=== PATIENT | female | born 1980 | race Caucasian/White ===

== ENCOUNTER → 2016-09-26 | Outpatient (CLI) | payer BC ==
[~2016-09-26] MED LIST: FIBER TAB; FIBER TAB PO; MISCCAP80 PO; NAPR1TAB9 PO; OXYC-57 PO; PANT40TA PO; PLEXUS PO
== END | disposition home or self-care (01) ==
LOC: C.PAPS 08:55
PROVIDERS: ATTEND Obstetrics & Gynecology
DX: Z01.419 Encounter for gynecological examination (general) (routine) without abnormal findings (principal)

== ENCOUNTER → 2016-09-26 | Outpatient (CLI) | payer BC ==
[2016-09-28 11:13] LABS: VARICELLA ZOS VIR IGG VALUE 992.2 INDEX
== END | disposition home or self-care (01) ==
LOC: C.LAB1850 15:55
PROVIDERS: ATTEND Obstetrics & Gynecology
DX: Z01.419 Encounter for gynecological examination (general) (routine) without abnormal findings (principal); Z31.69 Encounter for other general counseling and advice on procreation

== ENCOUNTER → 2016-11-28 | Day surgery (SDC) | payer BC ==
[2016-11-01 12:05] VITALS: BMI 25.0
--- NOTE | 2016-11-01 12:40 | PAT Medication Instructions ---
Service Date Nov 01, 2016. Current Home Medication List Naproxen (Aleve), 440 MG PO PRN Probiotic Product (Probiotic), 2 CAP PO HS [Fiber Tab], 3 TAB PO QAM [Plexus], 6-8 OZ PO QAM Medication Instructions For Your Scheduled Surgery - Hold the following medications the morning of surgery: Naproxen (Aleve), 440 MG PO PRN (otherwise okay to continue per surgeon) [Fiber Tab], 3 TAB PO QAM [Plexus], 6-8 OZ PO QAM - Take the following medications as scheduled the night before surgery: Probiotic Product (Probiotic), 2 CAP PO HS nothing to eat or drink after midnight If you have any questions please call us at [phone] or [phone] or [phone]
[2016-11-01 13:27] LABS: BASO % 0.3 %; BASO ABS # 0.02 K/uL (0-0.2); COMPLETE YES; EOS % 4.9 %; HEMATOCRIT 39.7 % (37-47); IG% 0.3 %; LYMPH % 41.4 %; LYMPH ABS # 2.45 K/uL (1.2-3.4); MEAN CELL VOLUME 86.5 fL (80-100); MEAN CORPUSCULAR HEMOGLOBIN 29.6 pg (25-34); MEAN CORPUSCULAR HGB CONC 34.3 g/dl (32-36); MEAN PLATELET VOLUME 11.1 fL (7.4-10.4); MONO % 8.3 %; NEUT % 44.8 %; PLATELET COUNT 309 K/uL (130-400); RED BLOOD COUNT 4.59 M/uL (4.2-5.4); WHITE BLOOD COUNT 5.92 K/uL (4.8-10.8)
[~2016-11-28] VITALS: Ht 162.6 cm; Wt 67.1 kg
[~2016-11-28] MED LIST changes: +ACETAMINOPHEN 325 MG TAB PO PRN; +ACETAMINOPHEN 650 MG SUPP PR PRN; +ASPI325T45 PO; +ATROPINE SULFATE 0.1 MG/ML 5ML SYR IV PRN; +BUPIVACAINE 0.5 % 5 MG/1 ML MPF 30ML VIAL ONE; +CEFAZOLIN 2000 MG/60 ML D5W IV SCH; +DEXAMETHASONE SOD INJ 4 MG/ML VIAL ONE; +EpHEDrine SULFATE INJ 50 MG/ML AMP IV PRN; +FENTANYL CITRATE INJ 50 MCG/1 ML 2 ML VIAL ONE; -FIBER TAB; +GLYCOPYRROLATE INJ 0.2 MG/ML VIAL ONE; +HYDROmorphone INJ 2 MG/ML SYR/VIAL IV PRN; +IBUPROFEN 200 MG TAB PO PRN; +IBUPROFEN 600 MG TAB PO PRN; +KETOROLAC TROMETHAMINE 30 MG/ML VIAL IV. PRN; +KETOROLAC TROMETHAMINE 30 MG/ML VIAL ONE; +LACTATED RINGER'S 1000ML 1,000 ML IV SCH; +LIDOCAINE HCL 2% 2 ML VIAL (20MG/ML) ONE; +MIDAZOLAM HCL 1 MG/ML 2ML VIAL ONE; +MoRPHine SULFATE 2 MG/ML CARP IV PRN; +MoRPHine SULFATE 4 MG/ML 1 ML CARP\\VIAL IV PRN; +NEOSTIGMINE METHYLSULFATE 5 MG/5 ML SYR ONE; +ONDANSETRON INJ 2 MG/ML 2 ML VIAL IV PRN; +ONDANSETRON INJ 2 MG/ML 2 ML VIAL ONE; +OXYCODONE/ACETAMINOPHEN 5-325 TAB ONE; +OXYCODONE/ACETAMINOPHEN 5-325 TAB PO PRN; -PANT40TA PO; +PHENYLEPHRINE 100MCG/ML 5ML SYR IV PRN; +PROPOFOL IV EMULSION 10 MG/ML 20 ML VIAL IV ONE; +ROCURONIUM BROMIDE 10 MG/ML 5 ML VIAL IV ONE
[2016-11-28 05:50] VITALS: BP 115/64; PULSE 56; TEMP 37.1; O2SAT 97; Ht 162.6 cm; Wt 67.1 kg
[2016-11-28 06:23] LABS: BASO % 0.5 %; BASO ABS # 0.03 K/uL (0-0.2); EOS % 6.5 %; HEMATOCRIT 36.5 % (37-47); IG% 0.2 %; LYMPH % 40.8 %; LYMPH ABS # 2.58 K/uL (1.2-3.4); MEAN CELL VOLUME 85.5 fL (80-100); MEAN CORPUSCULAR HEMOGLOBIN 30.2 pg (25-34); MEAN PLATELET VOLUME 10.4 fL (7.4-10.4); MONO % 8.4 %; NEUT % 43.6 %; PLATELET COUNT 276 K/uL (130-400); RED BLOOD COUNT 4.27 M/uL (4.2-5.4); WHITE BLOOD COUNT 6.32 K/uL (4.8-10.8)
[2016-11-28 06:27] LABS: COMPLETE YES; MEAN CORPUSCULAR HGB CONC 35.3 g/dl (32-36)
--- NOTE | 2016-11-28 07:13 | History & Physical Bridge Note ---
H&P Re-Evaluation Bridge Note: I have examined the patient, reviewed the History & Physical and in the interval since the performance of the History & Physical I have noted the following changes of clinical significance: No changes noted
--- NOTE | 2016-11-28 08:30 | [facility] Post Operative Brief Note ---
Immediate Operative Summary Operative Date Nov 28, 2016. Pre-Operative Diagnosis Cyst of right ovary Post-Operative Diagnosis Cyst of right ovary Procedure(s) Performed Open Mini Incision of Abdomen, Lysis of Adhesions, Right Ovarian Cystectomy Surgeon Dr. Claudia Grubbs Meat Seafood Associate Surgeon(s) None Estimated Blood Loss 10 mL Findings 5-6cm cystic mass on the right ovary, dermoid, left ovary nl, nl appearing tubes bilaterally Fluids (cc crystalloids) 900cc Specimens Permanent specimens A: Right ovarian cyst Drains none Anesthesia gett Complication(s) None Disposition Recovery Room / PACU
--- NOTE | 2016-11-28 08:35 | Discharge Instructions ---
Discharge Instructions Date of Service Nov 28, 2016. Visit Reason for Visit: Cyst Of Right Ovary Discharge Discharge Diagnosis / Problem: s/p minilaparotomy and removal of right ovarian cyst. Discharge Goals Goal(s): Specific goals Activity Recommendations Activity Limitations: per Instructions/Follow-up section Anesthesia . Post Anesthesia Instructions: If you have had General Anesthesia or IV Sedation: * Do not drive today. * Resume driving when surgeon permits. * Do not make important decisions or sign legal documents today. * Call surgeon for: 1. Temperature elevations greater than 101 degrees F. 2. Uncontrollable pain. 3. Excessive bleeding. 4. Persistent nausea and vomiting. 5. Medication intolerance (nausea, vomiting or rash). * For nausea and vomiting use only clear liquids such as: tea, soda, bouillon until nausea subsides, then gradually increase diet as tolerated. * If you have any concerns or questions, call your surgeon's office. If physician is unavailable and it is an emergency, call 911 or go to the nearest emergency room. . Instructions / Follow-Up Instructions / Follow-Up ACTIVITY RECOMMENDATIONS: Activity: * During the first week at home, your activity should be similar to that done at the hospital prior to discharge. Your primary activity is in-house walking interspersed with rest periods. Preparing lunch for yourself is acceptable. You may go up and down stairs. Try to stay up progressively longer periods of time to help regain your strength more quickly. * During the second week at home, activities should include some meal preparation, walking to strengthen abdominal muscles and riding in a car. You may drive a car and make brief shopping trips at the end of the second week at home. * Lifting should not exceed 15-20 pounds during the first month after surgery. * Sexual intercourse can usually be resumed about 6 weeks after surgery depending on findings at your post-operative examinations. Bathing: * Showers or baths are permissible. Sitting in four to six inches of hot water (sitz bath) is often comforting after vaginal surgery and is permitted at any time. A sitz bath at bedtime can also assist in a better night's sleep. SPECIAL CARE INSTRUCTIONS: The major discomforts related to surgery have now passed and progressive improvement will occur. The tight uncomfortable feeling in the abdominal, pelvic and back area will gradually fade away. Fatigue may take the longest to disappear; your energy level may take several weeks to return to normal. At times you may become frustrated or impatient over not feeling as well or doing as much as you'd like , but this is a normal reaction to surgery and will pass with time. Vaginal Discharge: * Odorous, blood-tinged or brownish discharge may be present for one to three weeks after surgery. * Pads should be used and not tampons. * Stitches may be passed vaginally. * Bleeding may be somewhat increased approximately two weeks after surgery, which is related to the stitches dissolving. * If bleeding becomes free flowing, notify our office at . Bowel Care: * Constipation after surgery is very common. Foods that promote bowel activity (bran, fruit, prune juice) should be included in your diet. * A capsule, DIALOSE-PLUS, can be purchased without a prescription and can be taken daily (one or two capsules) to assist in promoting bowel activity. * If you have had vaginal surgery involving your rectum, we will discuss this when discharged from the hospital. Catheter or "CYSTO-CATH": * Approximately 80% of "bladder repair" patients will require a catheter at home until the swelling recedes. * Some patients require days to weeks before adequate bladder emptying will resume. * In general, after each time you urinate, un-clamp the catheter again. Measure the amount in the bag. When this is consistently below 100cc, call the office to make an appointment to have the catheter removed. Temperature: * Any fever above 100.4 degrees F should be reported to our office at . FOLLOW-UP: Post-Operative Appointments: * Individual instructions will have been given about the timing of your first examination, but this is usually at the end of the second week home. * You will need to call the office at soon after discharge to make the appointment for your post-op check-up if it has not already been scheduled. * Additional information regarding activity, sexual intercourse and when to return to work will be given at this appointment. WE WISH YOU A SPEEDY RECOVERY! Diet Recommendations Recommended Home Diet: no limitations, resume previous diet Procedures Procedures Performed: Open Mini Incision of Abdomen, Lysis of Adhesions, Right Ovarian Cystectomy Pending Studies Studies pending at discharge: no Medical Emergencies . Who to Call and When: Medical Emergencies: If at any time you feel your situation is an emergency, please call 911 immediately. . Non-Emergent Contact Non-Emergency issues call your: Social Staff Worker . . "Provider Documentation" section prepared by Claudia Grubbs. . [place] Drug Monitoring Program Search Results: patient reviewed within database, no issues identified
--- NOTE | 2016-11-28 08:49 | Anesthesiology Progress Note ---
Anesthesia Post Op Note Date & Time Nov 28, 2016 at 08:48 Vital Signs Pain Intensity: 5.0 Vital Signs Past 12 Hours Date Time Temp Pulse Resp B/P (MAP) Pulse Ox O2 Delivery O2 Flow Rate FiO2 11/28/16 08:30 36.0 53 10 100/62 100 Oxymask 10 11/28/16 05:50 37.1 56 18 115/64 (81) 97 Room Air Notes Mental Status: alert / awake / arousable, participated in evaluation Pt Amnestic to Procedure: Yes Nausea / Vomiting: adequately controlled Pain: adequately controlled Airway Patency, RR, SpO2: stable & adequate BP & HR: stable & adequate Hydration State: stable & adequate Anesthetic Complications: no major complications apparent
[2016-11-28 09:15] VITALS: BP 98/65; PULSE 65; TEMP 37.3; O2SAT 97
--- NOTE | 2016-11-28 09:16 | OPERATIVE REPORT ---
DATE OF OPERATION: 11/28/2016 PREOPERATIVE DIAGNOSIS: Right complex ovarian cyst. POSTOPERATIVE DIAGNOSIS: Right complex ovarian cyst, probable dermoid. PROCEDURE: Minilaparotomy with right ovarian cystectomy. SURGEON: Dr. Claudia Grubbs. ANESTHESIA: General per endotracheal tube. ESTIMATED BLOOD LOSS: 10 mL. FLUIDS: 900 mL of IV fluid. URINE OUTPUT: 150 mL of clear yellow urine drained from the bladder at the end of the procedure. INDICATIONS: The patient is a 1, who presented for her annual exam. She had a known dermoid cyst diagnosed on CT scan approximately a year ago. She is now interested in . Repeat ultrasound performed showing dermoid increased in size. FINDINGS: Right ovary enlarged by a 5-6 cm cystic mass. Right tube, normal. Left ovary, normal. Left tube, normal. Uterus appeared normal. COMPLICATIONS: None. DRAINS: None. DISPOSITION: To recovery room in stable condition. DESCRIPTION OF PROCEDURE: The patient was taken to the operating room, where she was identified verbally and by bracelet. She was placed in dorsal supine position, where general anesthesia was induced without difficulty. She was then placed in the frog leg position, where an exam under anesthesia was performed showing a mobile right adnexa with a 5-cm mass appreciable. No appreciable mass within the left adnexa. Uterus is mobile. A Cruz catheter was placed sterilely. The patient was placed back into the supine position and she was prepped and draped in normal sterile fashion. A time-out was held identifying correct patient, procedure and positioning. A minilaparotomy incision was made with the knife. This was taken down to the underlying layer of fascia using Bovie electrocautery. Bleeding was attended to with Bovie electrocautery. The fascia was incised in the midline with cautery and taken out laterally with scissors. The superior edge of the fascial incision was elevated and the underlying layer of rectus muscle was taken off bluntly and with scissors. In a similar fashion, the inferior edge of the fascial incision was elevated and the underlying layer of rectus muscle was taken off bluntly and with scissors. The peritoneum was entered bluntly and was stretched. The barker operator's hand was placed into the abdomen. The right ovary was palpated to be enlarged approximately 5-6 cm and it was brought up through the incision. Blue towels were packed around it. An incision was made over the cystic mass with the knife. The cystic mass was then removed using traction and countertraction and removing the cyst wall from the ovary with a Kitner. The cyst was ruptured during the course of the procedure, releasing fatty fluid and hair was noted. The cyst was then removed in its entirety and handed off. The bed of the cyst was then irrigated. Hemostasis was noted to be excellent. A baseball stitch of 3-0 Vicryl was placed in the base to close the space and then the edges were reapproximated with 3-0 Vicryl in a running fashion. Hemostasis was noted to be excellent. The ovary was replaced. The left ovary was palpated and visualized normally as well as its tube. The procedure was thus terminated. The rectus muscles were approximated in the midline naturally. The fascia was reapproximated with 0 Vicryl meeting in the midline. Subcuticular tissue was copiously irrigated with warm normal saline. Any bleeding was attended to with Bovie electrocautery. A stitch of 2-0 plain gut was used to close the space and the skin was closed with 4-0 Vicryl in a subcuticular fashion. All sponge, lap and needle counts were correct x2. The patient tolerated the procedure well and was taken to the recovery room in stable condition. I attest to the content of the Intraoperative Record and any orders documented therein. Any exception s are noted below.
[2016-11-28 09:45] VITALS: BP 110/74; PULSE 63; O2SAT 99
[2016-11-28 10:15] VITALS: BP 115/62; PULSE 68; TEMP 37.1; O2SAT 98
[2016-11-28 11:30] VITALS: BP 101/65; PULSE 92; O2SAT 99
== END | disposition home or self-care (01) ==
LOC: C.ACU 05:29
PROVIDERS: ATTEND Obstetrics & Gynecology
DX: D27.0 Benign neoplasm of right ovary (principal); F41.9 Anxiety disorder, unspecified; Z98.890 Other specified postprocedural states; Z98.818 Other dental procedure status; Z87.891 Personal history of nicotine dependence; Z86.711 Personal history of pulmonary embolism; Z68.25 Body mass index [BMI] 25.0-25.9, adult; Z83.3 Family history of diabetes mellitus; Z82.49 Family history of ischemic heart disease and other diseases of the circulatory system; Z80.42 Family history of malignant neoplasm of prostate; Z83.49 Family history of other endocrine, nutritional and metabolic diseases

== ENCOUNTER → 2017-04-17 | Outpatient (CLI) | payer BC ==
[~2017-04-17] MED LIST changes: -ACETAMINOPHEN 325 MG TAB PO PRN; -ACETAMINOPHEN 650 MG SUPP PR PRN; -ATROPINE SULFATE 0.1 MG/ML 5ML SYR IV PRN; -BUPIVACAINE 0.5 % 5 MG/1 ML MPF 30ML VIAL ONE; -CEFAZOLIN 2000 MG/60 ML D5W IV SCH; -DEXAMETHASONE SOD INJ 4 MG/ML VIAL ONE; -EpHEDrine SULFATE INJ 50 MG/ML AMP IV PRN; -FENTANYL CITRATE INJ 50 MCG/1 ML 2 ML VIAL ONE; -GLYCOPYRROLATE INJ 0.2 MG/ML VIAL ONE; -HYDROmorphone INJ 2 MG/ML SYR/VIAL IV PRN; -IBUPROFEN 200 MG TAB PO PRN; -IBUPROFEN 600 MG TAB PO PRN; -KETOROLAC TROMETHAMINE 30 MG/ML VIAL IV. PRN; -KETOROLAC TROMETHAMINE 30 MG/ML VIAL ONE; -LACTATED RINGER'S 1000ML 1,000 ML IV SCH; -LIDOCAINE HCL 2% 2 ML VIAL (20MG/ML) ONE; -MIDAZOLAM HCL 1 MG/ML 2ML VIAL ONE; -MoRPHine SULFATE 2 MG/ML CARP IV PRN; -MoRPHine SULFATE 4 MG/ML 1 ML CARP\\VIAL IV PRN; -NEOSTIGMINE METHYLSULFATE 5 MG/5 ML SYR ONE; -ONDANSETRON INJ 2 MG/ML 2 ML VIAL IV PRN; -ONDANSETRON INJ 2 MG/ML 2 ML VIAL ONE; -OXYCODONE/ACETAMINOPHEN 5-325 TAB ONE; -OXYCODONE/ACETAMINOPHEN 5-325 TAB PO PRN; -PHENYLEPHRINE 100MCG/ML 5ML SYR IV PRN; -PROPOFOL IV EMULSION 10 MG/ML 20 ML VIAL IV ONE; -ROCURONIUM BROMIDE 10 MG/ML 5 ML VIAL IV ONE
--- NOTE | 2017-04-17 15:41 | MAMMOGRAPHY REPORT ---
BILATERAL DIGITAL DIAGNOSTIC MAMMOGRAM TOMOSYNTHESIS WITH CAD AND TARGETED LEFT ULTRASOUND: 04/17/2017 CLINICAL HISTORY: 36-year-old woman presents after she noticed a lump in the left upper outer quadran t approximately 8 weeks ago. Last week she felt a possible second area that was tender but possibly due to ovulation. No skin erythema or thickening. No nipple discharge. No family history of breast cancer. Baseline exam. TECHNIQUE: Bilateral breast tomosynthesis in addition to standard 2D mammography was performed. A 2D left exaggerated lateral CC view was also performed. Current study was also evaluated with a Comput er Aided Detection (CAD) system. COMPARISON: No prior exams were available for comparison. BREAST COMPOSITION: The tissue of both breasts is extremely dense, which lowers the sensitivity of m ammography. FINDINGS: A triangular palpable marker overlies the skin of the left upper outer quadrant. No suspic ious mass, architectural distortion or cluster of microcalcifications is seen, with particular attent ion to the area of palpable concern in the left breast. Targeted ultrasound was performed in the area of lump pointed out by the patient. It should be noted that the patient pointed out a single grape-sized lump in the left upper outer quadrant approximate 1:00 axis. In the 1:00 breast, 6 cm from the nipple, in the area of concern pointed out by the patie nt there is a soft discrete plateau of firm tissue measuring approximately 1.5 x 2.5 cm. On ultrasou nd, there is an island of dense glandular tissue without underlying solid or cystic suspicious mass. No focal skin thickening or drainable fluid collection. IMPRESSION: ACR BI-RADS CATEGORY 2: BENIGN, TARGETED ULTRASOUND ACR BI-RADS CATEGORY 2: BENIGN 1. There is no suspicious mammographic or targeted sonographic abnormality or evidence of malignancy in the 1:00 left breast, in the area of lump pointed out by the patient. Continued clinical monitorin g and clinical follow-up is recommended, as biopsy of a clinically suspicious mass should not be prec luded by negative imaging. 2. No mammographic evidence of malignancy in the right breast. These results and recommendations were discussed with the patient and her at the time of th e exam. Approximately 10% of breast cancers are not detected with mammography. A negative mammographic report should not delay biopsy if a clinically suggestive mass is present. Yulissa Cervantes M.D. ay/:04/17/2017 12:22:29 In Home Caregiver: Lissy YADAV(Henok)(M), [facility] letter sent: Normal 1/2 BI-RADS Code: ACR BI-RADS Category 2: Benign Ultrasound BI-RADS: ACR BI-RADS Category 2: Benign
== END | disposition home or self-care (01) ==
LOC: C.MAMM 11:32
PROVIDERS: ATTEND Obstetrics & Gynecology
DX: N63.21 Unspecified lump in the left breast, upper outer quadrant (principal)

== ENCOUNTER → 2017-09-07 | Outpatient (CLI) | payer BC ==
[~2017-09-07] MED LIST changes: +ASPECOTC PO; -ASPI325T45 PO; -OXYC-57 PO
== END | disposition home or self-care (01) ==
LOC: C.PATH 08:51
PROVIDERS: ATTEND Obstetrics & Gynecology
DX: N63.20 Unspecified lump in the left breast, unspecified quadrant (principal)

== ENCOUNTER → 2017-10-04 | Outpatient (CLI) | payer BC | END | disposition home or self-care (01) | LOC: C.LABSPEC 17:49 | PROVIDERS: ATTEND Obstetrics & Gynecology | DX: O09.511 Supervision of elderly primigravida, first trimester (principal); Z3A.00 Weeks of gestation of pregnancy not specified ==

== ENCOUNTER 2018-05-22 08:18 | Inpatient (IN) ==
[2018-05-22] MEDS ORDERED: OXYTOCIN 30 UNITS/500 ML BAG IV PRN ×2 (08:24→14:04)
[2018-05-22] MEDS ORDERED: LACTATED RINGER'S 1,000 ML IV PRN ×2 (08:24→09:55)
[2018-05-22] MEDS ORDERED: BUPIVACAINE 0.25% 30 ML VIAL ONE (08:28)
[2018-05-22] MEDS ORDERED: fentaNYL 2MCG/ML ROPIV 1.25MG/ML 100 ML BAG EPI ONE (08:28)
[2018-05-22] MEDS ORDERED: ePHEDrine sulfate 50 MG/ML AMP ONE (08:28)
[2018-05-22] MEDS ORDERED: fentaNYL citrate 100 MCG/2 ML VIAL ONE (08:28)
[2018-05-22] MEDS ORDERED: LACTATED RINGER'S 1,000 ML IV SCH (08:30)
--- NOTE | 2018-05-22 08:35 | History & Physical Report ---
Date of Service May 22, 2018 Assessment & Plan (1) Active labor at term: plan admit, try to get epidural. Fetus overall reassuring--category two with variables. anticipate . will gry to get pcn on board for gbs but may not get adequate treatment. (2) Advanced maternal age (AMA) in : (3) 40 weeks gestation of : History of Present Illness Chief Complaint: contractions and bloody show Primary Care Provider: Angelo William MD Patient is a 37yowf with iup at 40 0/7 who presents to labor and delivery complaining of contractions and bloody show. no lof. +fm. got bad around 7am. complicated by ama and gbs positive status. labs--AB+/ab-/pap nl/ri/rprnr/hepb-/hiv-/gc/ct-/gtt x 2 nl/gbs positive. Declined genetic testing. Her medications include pnv and calcium. She is NOT taking an asa. Allergies Allergy/AdvReac Type Severity Reaction Status Date / Time No Known Allergies Allergy Unknown Verified 11/28/16 05:45 Home Medications Home Medications Medication Instructions Recorded Confirmed Type PROBIOTIC PRODUCT (PROBIOTIC) 2 cap PO HS #0 09/29/15 History FIBER TAB 3 tab PO QAM #0 11/01/16 History Naproxen (Aleve) 440 mg PO PRN #0 tab 11/01/16 History PLEXUS 6 - 8 oz PO QAM #0 11/01/16 History ASPIRIN 650 mg PO Q4 PRN #0 11/28/16 History Patient History Medical History H/O wisdom tooth extraction History of varicella Migraines Ovarian cyst Surgical History H/O ovarian cystectomy History of ankle surgery History of laparoscopy 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
[2018-05-22] MEDS ORDERED: PENICILLIN G POTASSIUM 6 MU in DEXTROSE 5% 250 ML IV ONE (08:45)
[2018-05-22 08:50] LABS: Hematocrit (blood only) 41.1 % (37-47); Hemoglobin 14.2 g/dL (12.0-16.0); Mean Corpuscular Volume 88.6 fL (80-100); Mean Platelet Volume 11.7 fL (7.4-10.4); Platelet Count 226 K/uL (130-400); RDW Coefficient of Variation 14.1 % (11.5-14.5); RDW Standard Deviation 45.7 fL (36.4-46.3); Red Blood Count 4.64 M/uL (4.2-5.4); White Blood Count 14.45 K/uL (4.8-10.8)
[2018-05-22 08:59] LABS: Mean Corpuscular Hgb Conc 34.5 g/dL (32-36)
--- NOTE | 2018-05-22 09:41 | Anesthesiology Consultation ---
Date of Service May 22, 2018 Assessment & Plan (1) Encounter for pre-operative examination: Chart Review Chart Review: Acceptable Risk for Labor Epidural Consults Requested none ASA ASA2 Proposed Anesthesia Anesthesia Type: Labor Epidural Risk / Benefits Reviewed With: PT / POA / Parent / Guardian, Accepts Plan and Informed Consent Obtained NPO Date Last Intake of Fluids: 05/22/18 Time Last Intake of Fluids: 09:44 Date Last Intake of Solids: 05/22/18 Time Last Intake of Solids: 06:30 History Allergies Allergy/AdvReac Type Severity Reaction Status Date / Time No Known Allergies Allergy Unknown Verified 11/28/16 05:45 Medications Home Medications Medication Instructions Recorded Confirmed Last Taken PROBIOTIC PRODUCT (PROBIOTIC) 2 cap PO HS #0 09/29/15 Unknown FIBER TAB 3 tab PO QAM #0 11/01/16 Unknown Naproxen (Aleve) 440 mg PO PRN #0 tab 11/01/16 Unknown PLEXUS 6 - 8 oz PO QAM #0 11/01/16 Unknown ASPIRIN 650 mg PO Q4 PRN #0 11/28/16 Unknown Active Medications Generic Name Dose Route Start Last Admin Trade Name Freq PRN Reason Stop Dose Admin Lactated Ringer's 1,000 mls @ 999 mls/hr 05/22/18 08:24 05/22/18 08:28 Lr IV 06/21/18 08:23 999 mls/hr .Q1H1M PRN Administration (Pre-Anesthesia) Past Medical History Medical History H/O wisdom tooth extraction History of varicella Migraines Ovarian cyst Past Surgical History Surgical History H/O ovarian cystectomy History of ankle surgery History of laparoscopy Physical Exam Vital Signs Last Vital Signs Temp 37.1 C 05/22/18 08:20 Pulse 74 05/22/18 08:20 Resp 20 05/22/18 08:20 BP 118/66 05/22/18 08:20 Constitutional not obese (Gravid uterus) ENMT Mouth: no TMJ abnormality and oral opening not small Thyromental Distance: > or= 3.5 Finger Breadths Mallampati Class: III Mouth / Teeth: 1. Chipped tooth Neck normal visual inspection; neck extension not limited Respiratory normal respiratory effort Auscultation: lungs clear to auscultation bilaterally Cardiovascular Rate/Rhythm: regular rate and regular rhythm Heart Sounds: no murmur Neurologic moves all extremities Motor/Sensory: no sensory deficit Psychiatric A+Ox3, euthymic affect Orientation: alert and oriented x 3 Testing Laboratory Results 05/22/18 08:41
[2018-05-22] MEDS ORDERED: NALOXONE HCL 1 MG in SODIUM CHLORIDE 0.9% 1000ML 1,000 ML IV PRN (09:55)
[2018-05-22] MEDS ORDERED: NALBUPHINE HCL INJ 10 MG/ML AMP IV PRN (09:55)
[2018-05-22] MEDS ORDERED: DiphenhydrAMINE HCL 50 MG/ML VIAL IV PRN (09:55)
[2018-05-22] MEDS ORDERED: fentaNYL 2MCG/ML ROPIV 1.25MG/ML 100 ML BAG EPI PRN (09:55)
[2018-05-22] MEDS ORDERED: ePHEDrine sulfate 50 MG/ML AMP IV PRN (09:55)
[2018-05-22] MEDS ORDERED: NALOXONE HCL 0.4 MG/1 ML VIAL/CARP IV PRN (09:55)
[2018-05-22] MEDS ORDERED: ONDANSETRON INJ 2 MG/ML 2 ML VIAL IV PRN (09:55)
[2018-05-22] MEDS ORDERED: PROMETHAZINE HCL 25 MG in SODIUM CHLORIDE 0.9% 50 ML IV PRN (09:55)
[2018-05-22] MEDS ORDERED: PENICILLIN G POTASSIUM 3 MU in DEXTROSE 5% 100 ML IV PRN (10:00)
--- NOTE | 2018-05-22 10:23 | Labor Progress Brief Note ---
Date of Service May 22, 2018 Subjective comfortable with epidural Assessment & Plan (1) Active labor at term: First dose of pcn on . Comfortable. Will try to get to second dose of pcn, then arom and anticipate vaginal delivery. fetus category one. Physical Exam Vital Signs (Past 24 Hours): Last Vital Signs Temp 37.1 C 05/22/18 08:20 Pulse 83 05/22/18 10:20 Resp 20 05/22/18 08:20 BP 111/57 L 05/22/18 10:20 Pulse Ox 100 05/22/18 10:19 Constitutional: WD/WN, vitals as above Genitourinary: toco--q1-2min efm--125 wtih mod variability, +accels, no decels
[2018-05-22] MEDS ORDERED: OXYCODONE/ACETAMINOPHEN 5mg/325mg TAB PO PRN (13:25)
[2018-05-22] MEDS ORDERED: ACETAMINOPHEN 325 MG TAB PO PRN (13:25)
[2018-05-22] MEDS ORDERED: HYDROCORTISONE ACETATE 25 MG SUPP PR PRN (14:04)
[2018-05-22] MEDS ORDERED: SUPERCREAM 0.870% 15 GM JAR EXT PRN (14:04)
[2018-05-22] MEDS ORDERED: DIPHTHERIA/TETANUS/PERTUSSIS 0.5 ML SYR/VIAL IM ONE (14:04)
[2018-05-22] MEDS ORDERED: BISACODYL 10 MG SUPP PR PRN (14:04)
[2018-05-22] MEDS ORDERED: BENZOCAINE 20% AER SPR 82.5 GM CAN EXT PRN (14:04)
[2018-05-22] MEDS ORDERED: IBUPROFEN 600 MG TAB PO ONE (14:51)
[2018-05-22] MEDS ORDERED: BENZOCAINE 20% AER SPR 82.5 GM CAN EXT ONE (14:51)
--- NOTE | 2018-05-22 15:20 | Anesthesia Procedure Note ---
Date of Service May 22, 2018 Anesthesia Post Epidural Note Vital Signs Vital Signs: Temp Pulse Resp BP Pulse Ox 36.7 C 93 H 18 104/67 98 05/22/18 10:42 05/22/18 15:19 05/22/18 11:44 05/22/18 15:19 05/22/18 13:29 Pain Intensity Bilateral Abdomen: Pain Intensity: 3 Notes Mental Status: alert / awake / arousable and participated in evaluation Nausea / Vomiting: adequately controlled Pain: adequately controlled Airway Patency, RR, SpO2: stable & adequate BP & HR: stable & adequate Hydration State: stable & adequate Neuraxial Anesthesia: was administered and sensory block is resolving Anesthetic Complications: no major complications apparent and Pt Satisfied with anesthetic care Epidural: Removed without complications and With tip intact
[2018-05-22] MEDS: IBUPROFEN 600 MG TAB PO PRN ×3 (15:24→23:34)
--- NOTE | 2018-05-22 16:23 | Delivery Summary ---
DATE OF OPERATION: 05/22/2018 PREOPERATIVE DIAGNOSES: 1. Intrauterine at 40 and 0/7 weeks. 2. Active labor. 3. GBS positive. POSTOPERATIVE DIAGNOSES: 1. Intrauterine at 40 and 0/7 weeks. 2. Active labor. 3. GBS positive. PROCEDURES: 1. Penicillin for GBS prophylaxis. 2. Epidural. 3. Amniotomy. 4. Vacuum-assisted vaginal delivery. 5. Bilateral sulcal tears and left labial tear with repair. SURGEON: Claudia Grubbs MD ANESTHESIA: Epidural. ESTIMATED BLOOD LOSS: 475 mL. DESCRIPTION OF PROCEDURE: The patient presented to labor and delivery in active labor at 7-8 cm dilated. She thankfully was able to get an epidural and then she got 2 doses of penicillin for GBS prophylaxis. Towards the end of the dose of her second dose of penicillin, I went to check the patient, she was complete-complete, +2 station with a bulging bag of water. I decided to rupture the bulging bag of water, I did so for clear fluid and then the fetus started having heart rates dipping into the 70s. We decided to prepare for delivery as the patient was at +2 and in SONAL presentation. The patient pushed extremely well pushing to +2 to +3 station, we were still in the 70s with a heart rate despite oxygenation and scalp stimulation. Decision was made for outlet vacuum. Bladder was drained of urine in SONAL presentation. The vacuum was applied and over the first contraction, the fetus was delivered to +4 to +5 station. There was 1 pop-off. The vacuum was reapplied, and with the next contraction, the vertex was delivered in SONAL a presentation. The vacuum had been applied with no greater than 50 mmHg pressure. The vacuum was released. The nose and mouth were bulb suctioned. There was no nuchal cord and the rest of the infant was then delivered without difficulty. The infant was immediately vigorous, placed on the maternal abdomen where the nose and mouth were bulb suctioned. The cord was clamped and cut at about a minute and a half of life. Cord blood and segment were obtained. The placenta was delivered spontaneously intact with a 3-vessel cord. The cervix and upper vagina as well as the perineal body and rectum were all intact. Two small bilateral late sulci tears starting at the introitus and moving approximately 1-2 cm into the vagina were identified at 8 and 4 o'clock. These were repaired with 3-0 Vicryl in a running fashion until hemostasis was assured. A left labial laceration was then reapproximated with several interrupted sutures of 4-0 Vicryl until reapproximated. The entire perineum was then examined and hemostasis was noted to be excellent. The uterus was firm and hemostasis of the uterus was obtained with dilute Pitocin and fundal massage. Apgars were 9 and 8. Mother and baby were doing well at the end of the delivery. I attest to the content of the Intraoperative Record and any orders documented therein. Any exception s are noted below.
[2018-05-22] MEDS: DOCUSATE SODIUM 100 MG CAP PO SCH (20:37)
[2018-05-23] MEDS: IBUPROFEN 600 MG TAB PO PRN ×5 (03:35→23:52)
[2018-05-23 06:19] LABS: Hematocrit (blood only) 25.9 % (37-47); Hemoglobin 8.9 g/dL (12.0-16.0)
--- NOTE | 2018-05-23 07:03 | Obstetrical Progress Note ---
Date of Service <Alonso Patino DO - Last Filed: 05/23/18 07:03> May 23, 2018 Assessment & Plan <Alonso Patino DO - Last Filed: 05/23/18 07:03> (1) Spontaneous vaginal delivery: 37 y/o, , at 40.0 weeks, AB+, GBS+ - continue routine post- care - encourage , encourage ambulation. - GBS + coverage provided per protocol (2) Active labor at term: Subjective <Alonso Patino DO - Last Filed: 05/23/18 07:03> Ambulation: ambulating normally Voiding: no voiding problems Passing Gas:: Yes Diet Tolerance:: regular diet Lochia:: Small Feeding Type:: breast feeding Patricia states she is doing well this morning, no acute events overnight. She denies fever, chills, shortness of breath, chest pain, nausea, vomiting. Physical Exam <Alonso Patino DO - Last Filed: 05/23/18 07:03> Vital Signs (Past 24 Hours) Last Vital Signs Temp 36.6 C 05/23/18 03:40 Pulse 84 05/23/18 03:40 Resp 18 05/23/18 03:40 BP 109/66 05/23/18 03:40 Pulse Ox 100 05/23/18 03:40 Constitutional WD/WN, vitals as above cooperative and comfortable Eyes + anicteric sclerae and EOM intact bilaterally Neck normal visual inspection and trachea midline Respiratory normal respiratory effort, lungs clear to auscultation Cardiovascular RRR, no murmur, no edema Gastrointestinal (Abdomen) Percussion/Palpation: abdomen nontender uterine fundis is firm, non-tender, 2cm inferior to umbilicus. Musculoskeletal Head/Neck/Chest: normocephalic and head atraumatic Skin no rashes, warm and dry Neurologic moves all extremities and awake Psychiatric A+Ox3, euthymic affect Results & Data <DO Wandy Cody Last Filed: 05/23/18 07:03> Laboratory Results Laboratory Results - last 24 hr 05/22/18 05/23/18 08:41 05:55 WBC 14.45 H RBC 4.64 Hgb 14.2 8.9 L D Hct 41.1 25.9 L MCV 88.6 MCH 30.6 MCHC 34.5 RDW Std Deviation 45.7 RDW Coeff of Dana 14.1 Plt Count 226 MPV 11.7 H Medications Administered Cocaine HCl (Supercream 0.870%) 1 gm EXT BID PRN PRN Reason: Hemorrhoidal Inflammation Stop: 06/05/18 14:03 Last Admin: 05/22/18 20:37 Dose: 15 mg Documented by: [id number] Docusate Sodium (Colace) 100 mg PO BID [facility] Stop: 06/21/18 20:59 Last Admin: 05/22/18 20:37 Dose: 100 mg Documented by: [id number] Ibuprofen (Motrin) 600 mg PO Q4H PRN PRN Reason: Pain/CONTRERAS/Cramping/Fever Stop: 06/21/18 13:24 Last Admin: 05/23/18 03:35 Dose: 600 mg Documented by: [id number] Admin: 05/22/18 23:34 Dose: 600 mg Documented by: [id number] Admin: 05/22/18 19:26 Dose: 600 mg Documented by: [id number] Admin: 05/22/18 15:24 Dose: 600 mg Documented by: [id number] <Claudia Grubbs MD, FACOG - Last Filed: 05/23/18 07:57> Co-Signing Physician Notes Resident Physician Supervision Note: I interviewed and examined the patient. Discussed with Dr. Patino and agree with findings and plan as documented in the note. Any exceptions or clarifications are listed here: Doing well. Routine PP care. Drop in hgb noted. Asymptomatic. Documented By: Claudia Grubbs MD, FACOG
[2018-05-23] MEDS: DOCUSATE SODIUM 100 MG CAP PO SCH ×2 (08:26→19:43)
[2018-05-23] MEDS: PRENATAL VITAMIN 1 TAB PO SCH (08:26)
[2018-05-23] MEDS ORDERED: BISACODYL 5 MG TABEC PO SCH (20:00)
[2018-05-24] MEDS: IBUPROFEN 600 MG TAB PO PRN ×2 (04:31→09:25)
--- NOTE | 2018-05-24 07:03 | Obstetrical Progress Note ---
Date of Service <Alonso Patino - Last Filed: 05/24/18 07:24> May 24, 2018 Assessment & Plan <Alonso Patino - Last Filed: 05/24/18 07:24> (1) Spontaneous vaginal delivery: 37 y/o, , at 40.0 weeks, AB+, GBS+ - continue routine post- care - encourage , encourage ambulation. - GBS + coverage provided per protocol - discharge instructions reviewed at bedside (2) 40 weeks gestation of : Subjective <Alonso Patino - Last Filed: 05/24/18 07:24> Ambulation: ambulating normally Voiding: no voiding problems Passing Gas:: Yes Diet Tolerance:: regular diet Lochia:: Small Feeding Type:: breast feeding Patricia states she is doing well this morning, no acute events overnight. She denies fever, chills, chest pain, shortness of breath, nausea, vomiting. Physical Exam <Alonso Patino - Last Filed: 05/24/18 07:24> Vital Signs (Past 24 Hours) Last Vital Signs Temp 36.4 C L 05/23/18 23:55 Pulse 78 05/23/18 23:55 Resp 18 05/23/18 23:55 BP 108/63 05/23/18 23:55 Pulse Ox 96 05/23/18 15:15 Constitutional WD/WN, vitals as above cooperative and comfortable Eyes + anicteric sclerae and EOM intact bilaterally Neck normal visual inspection and trachea midline Respiratory normal respiratory effort, lungs clear to auscultation Cardiovascular RRR, no murmur, no edema Gastrointestinal (Abdomen) Percussion/Palpation: abdomen nontender uterine fundus is firm, non-tender, 3cm inferior to umbilicus Musculoskeletal Head/Neck/Chest: normocephalic and head atraumatic Skin no rashes, warm and dry Neurologic moves all extremities and awake Psychiatric A+Ox3, euthymic affect Results & Data <Alonso Patino - Last Filed: 05/24/18 07:24> Medications Administered Cocaine HCl (Supercream 0.870%) 1 gm EXT BID PRN PRN Reason: Hemorrhoidal Inflammation Stop: 06/05/18 14:03 Last Admin: 05/22/18 20:37 Dose: 15 mg Documented by: [id number] Docusate Sodium (Colace) 100 mg PO BID [facility] Stop: 06/21/18 20:59 Last Admin: 05/23/18 19:43 Dose: 100 mg Documented by: [id number] Admin: 05/23/18 08:26 Dose: 100 mg Documented by: [id number] Admin: 05/22/18 20:37 Dose: 100 mg Documented by: [id number] Ibuprofen (Motrin) 600 mg PO Q4H PRN PRN Reason: Pain/CONTRERAS/Cramping/Fever Stop: 06/21/18 13:24 Last Admin: 05/24/18 04:31 Dose: 600 mg Documented by: [id number] Admin: 05/23/18 23:52 Dose: 600 mg Documented by: [id number] Admin: 05/23/18 19:43 Dose: 600 mg Documented by: [id number] Admin: 05/23/18 15:29 Dose: 600 mg Documented by: [id number] Admin: 05/23/18 08:27 Dose: 600 mg Documented by: [id number] Admin: 05/23/18 03:35 Dose: 600 mg Documented by: [id number] Admin: 05/22/18 23:34 Dose: 600 mg Documented by: [id number] Admin: 05/22/18 19:26 Dose: 600 mg Documented by: [id number] Admin: 05/22/18 15:24 Dose: 600 mg Documented by: [id number] Prenat Multivit/[place]/Iron/Folic Ac ( Vitamin) 1 tab PO QAM [facility] Stop: 06/22/18 08:59 Last Admin: 05/23/18 08:26 Dose: 1 tab Documented by: [id number] <Kari Young MD, FACOG - Last Filed: 05/24/18 07:38> Co-Signing Physician Notes Resident Physician Supervision Note: I interviewed and examined the patient. Discussed with Dr. Morteza Patino and agree with findings and plan as documented in the note. Any exceptions or clarifications are listed here: [None] Documented By: Kari Young MD, FACOG
[2018-05-24] MEDS: DOCUSATE SODIUM 100 MG CAP PO SCH (09:25)
[2018-05-24] MEDS: PRENATAL VITAMIN 1 TAB PO SCH (09:25)
--- NOTE | 2018-06-01 06:32 | Discharge Summary ---
ADMISSION DIAGNOSES: 1. Intrauterine at term in active labor. 2. Advanced maternal age. 3. Group B Streptococcus positive. DISCHARGE DIAGNOSES: 1. Intrauterine at term in active labor. 2. Advanced maternal age. 3. Group B Streptococcus positive. PROCEDURES: Vacuum assisted vaginal delivery with bilateral sulcal tears and left labial tear with repair. HISTORY OF PRESENT ILLNESS: The patient is a 37-year-old white female 1, para 0 with an intrauterine at 40 and 0/7th weeks who presents to labor and delivery complaining of contractions and bloody show, no leaking of fluid, good movement. complicated by advanced maternal age and GBS status. For the rest the patient's detailed history please see her history and physical. On evaluation of physical exam, her cervix was 7, 100 and 0. She was milo about every 1 minute and heart tones were category 1. So, this is a 37-year-old 1, para 0 at 40 and 0/7th weeks in active labor. HOSPITAL COURSE: The patient was admitted. She underwent an epidural anesthetic and penicillin for GBS prophylaxis. During the administration of her second dose of penicillin, I checked the patient, she was complete-complete and about +2 station with a bulging bag of water. I decided to perform amniotomy and did so for clear fluid and the fetus started having heart rate deceleration dipping into the 70s. We decided to prepare for delivery, as the patient was +2 in SONAL presentation. The patient pushed extremely well pushing to +2 to +3 station, but we were still in intermittently in the 70s with heart rate despite oxygenation and scalp stimulation. Decision was made for outlet vacuum. The bladder was drained of urine and the baby was in SONAL presentation. The vacuum was applied and over the first contraction, the fetus was delivered to +4 to +5 station. There was 1 pop off. The vacuum was then reapplied over the next contraction and with vertex was delivered in SONAL presentation. The vacuum had been applied with no greater than 50 mmHg pressure. The vacuum was released. The nose and mouth were bulb suctioned. There was no nuchal cord. The rest of the infant was then delivered without difficulty. The infant was immediately vigorous and placed on maternal abdomen where the nose and mouth were bulb suctioned. The cord was clamped and cut in about 1.5 minutes of life. Cord blood and segment were obtained. The placenta was delivered spontaneously intact with a 3-vessel cord. The cervix and upper vagina as well as the perineal body and rectum were all intact. Two small bilateral sulci tears starting at the introitus and moving approximately 1 to 3 cm in the vagina were identified at 8 and 4 o'clock. These were repaired with 3-0 Vicryl in a running fashion until hemostasis was assured. The left labial laceration was then reapproximated with several interrupted sutures of 4-0 Vicryl. The entire perineum was then examined and hemostasis was noted to be excellent. The uterus was firm and the patient was receiving Pitocin and fundal massage. Apgars were 9 and 8. Mother and baby were doing well at the end of the delivery. The patient's course was otherwise uncomplicated. She was discharged home on day #2 to return for routine care. Her discharge H and H was 8.9 and 25.9, but she was asymptomatic from this.
== END 2018-05-24 17:20 | disposition home or self-care (01) | DRG 807 ==
LOC: 4S1 08:18 → OPB 08:18 → 4S1 08:24 → 4S2 16:24

== ENCOUNTER 2020-08-30 21:18 | Inpatient (IN) ==
[2020-08-30] MEDS ORDERED: OXYTOCIN 30 UNITS/500 ML BAG IV PRN (22:09)
[2020-08-30] MEDS ORDERED: ePHEDrine sulfate 50 MG/ML AMP ONE (22:15)
[2020-08-30] MEDS: LACTATED RINGER'S 1,000 ML IV PRN ×2 (22:15→23:11)
[2020-08-30] MEDS ORDERED: BUPIVACAINE 0.25% 30 ML VIAL ONE (22:15)
[2020-08-30] MEDS ORDERED: fentaNYL citrate 100 MCG/2 ML VIAL ONE (22:15)
[2020-08-30] MEDS ORDERED: SODIUM CHLORIDE 0.9% INJ 10 ML VIAL ONE (22:15)
[2020-08-30] MEDS ORDERED: fentaNYL 2MCG/ML ROPIVACAINE 1.25MG/ML 100 ML BAG EPI ONE (22:16)
--- NOTE | 2020-08-30 22:18 | Anesthesiology Consultation ---
Date of Service August 30, 2020 Assessment & Plan ASA ASA2 Proposed Anesthesia Anesthesia Type: Labor Epidural Risk / Benefits Reviewed With: PT / POA / Parent / Guardian, Accepts Plan and Informed Consent Obtained History Allergies Allergy/AdvReac Type Severity Reaction Status Date / Time No Known Allergies Allergy Unknown Verified 08/24/20 14:55 Medications Home Medications Medication Instructions Recorded Confirmed Last Taken prenat.vits,olivia,[id number] 1 tab PO DAILY 01/28/20 08/24/20 Unknown Active Medications Generic Name Dose Route Start Last Admin Trade Name Freq PRN Reason Stop Dose Admin Lactated Ringer's 1,000 mls @ 125 mls/hr 08/30/20 22:09 08/30/20 22:15 Lr IV 09/01/20 22:08 999 mls/hr .Q8H PRN Administration L&D Protocol Protocol Past Medical History Medical History (Updated 08/30/20 @ 22:23 by Kari Young MD, FACOG) Acute hemorrhoid Breast mass, left benign History of varicella Migraines Ovarian cyst Exercise / Class Metabolic Activity II 4-5 Yardwork/Stairs/Walk up hill Past Family History Family History Aunt Bipolar disorder Grandmother (Maternal) Colorectal cancer Diabetes Hypertension Mother Deep vein thrombosis Diabetes Dyslipidemia Hypertension Grandfather (Maternal) Prostate cancer Grandmother (Paternal) Cancer Ovarian cancer Denies family history of Coronary heart disease Cerebral aneurysm Alzheimer disease Clotting disorder Crohn's disease Dementia Depression Myocardial infarction Breast cancer Congenital kidney disease Lung cancer COPD (chronic obstructive pulmonary disease) Stroke Asthma Past Surgical History Surgical History H/O ovarian cystectomy H/O wisdom tooth extraction History of ankle surgery History of laparoscopy Past Anesthesia History No Hx of Anesthesia Complications and No Family Hx of Anesthesia Complications History of PONV No Hx of PONV and No Hx of Motion Sickness Social History Smoking Status: Never smoker Hx Alcohol Use: No Hx Substance Use: No Review of Systems denies fever/cough/ colds/ chest pain/ SOB/ MARILY denies MARILY Physical Exam Vital Signs Last Vital Signs Temp 36.8 C 08/30/20 21:45 Pulse 96 H 08/30/20 22:52 Resp 18 08/30/20 21:45 BP 104/64 08/30/20 22:51 Pulse Ox 97 08/30/20 22:52 ENMT Mouth: no TMJ abnormality and no dentition abnormality Thyromental Distance: > or= 3.5 Finger Breadths Mallampati Class: II Neck neck extension not limited Respiratory normal respiratory effort; no respiratory distress Auscultation: lungs clear to auscultation bilaterally Cardiovascular Rate/Rhythm: regular rate and regular rhythm Neurologic moves all extremities Psychiatric Orientation: alert and oriented x 3 Testing Laboratory Results 08/30/20 22:23
[2020-08-30] MEDS ORDERED: ePHEDrine sulfate 50 MG/ML AMP IV PRN (22:19)
[2020-08-30] MEDS ORDERED: NALBUPHINE HCL INJ 10 MG/ML AMP IV PRN (22:19)
[2020-08-30] MEDS ORDERED: fentaNYL 2MCG/ML ROPIVACAINE 1.25MG/ML 100 ML BAG EPI PRN (22:19)
[2020-08-30] MEDS ORDERED: NALOXONE HCL 0.4 MG/1 ML VIAL/CARP IV PRN (22:19)
[2020-08-30] MEDS ORDERED: NALOXONE HCL 1 MG in SODIUM CHLORIDE 0.9% 1000ML 1,000 ML IV PRN (22:19)
[2020-08-30] MEDS ORDERED: PROMETHAZINE HCL 25 MG in SODIUM CHLORIDE 0.9% 50 ML IV PRN (22:19)
[2020-08-30] MEDS ORDERED: ONDANSETRON INJ 2 MG/ML 2 ML VIAL IV PRN (22:19)
[2020-08-30] MEDS ORDERED: diphenhydrAMINE 50 MG/ML VIAL IV PRN (22:19)
--- NOTE | 2020-08-30 22:22 | History & Physical Report ---
Date of Service August 30, 2020 Assessment & Plan (1) Normal labor: Plan: IUP with SPROM and spontaneous onset of labor requesting epidural analgesia anticipate vaginal Admission and Anticipated Discharge Date Admission Date: August 30, 2020 History of Present Illness Chief Complaint: Patient is a 40 yo white female EDC 09/15/20 who presents with SPROM at 37 6/7 weeks with onset of regular ctns subsequently. complicated by AMA. GBS - negative Primary Care Provider: NO PCP Allergies Allergy/AdvReac Type Severity Reaction Status Date / Time No Known Allergies Allergy Unknown Verified 08/24/20 14:55 Home Medications Medication Instructions Recorded Confirmed Type prenat.vits,olivia,[id number]-[id number]-fwfhn 1 tab PO DAILY 01/28/20 08/24/20 History Patient History Medical History (Updated 08/30/20 @ 22:23 by Kari Young MD, FACOG) Acute hemorrhoid Breast mass, left benign History of varicella Migraines Ovarian cyst Surgical History H/O ovarian cystectomy H/O wisdom tooth extraction History of ankle surgery History of laparoscopy Family History Aunt Bipolar disorder Grandmother (Maternal) Colorectal cancer Diabetes Hypertension Mother Deep vein thrombosis Diabetes Dyslipidemia Hypertension Grandfather (Maternal) Prostate cancer Grandmother (Paternal) Cancer Ovarian cancer Denies family history of Coronary heart disease Cerebral aneurysm Alzheimer disease Clotting disorder Crohn's disease Dementia Depression Myocardial infarction Breast cancer Congenital kidney disease Lung cancer COPD (chronic obstructive pulmonary disease) Stroke Asthma Social History Smoking Status: Never smoker Age Quit Using Tobacco: 27; Years Smoked: 13; Second Hand Exposure: No; Hx Alcohol Use: No Hx Substance Use: No Preferred Language: [place] Communication Ability: Effective Fund Accountant Required: No Beliefs That Will Affect Care: None marital status: marital status details: Morgan (37) [phone] Current Living Situation: Spouse Current Living Situation Comment: lives with spouse and son, no pets. current occupational status: employed current occupation: [employer] Feels Safe at Home: Yes Dental Care, Regularly: Yes Physical Activity Frequency: 1-2 Times per Week Seatbelt Use: always Sunscreen Use: Yes Assistive Devices: None Review of Systems All systems reviewed & are unremarkable except as noted in HPI & below Physical Exam Constitutional: WD/WN, vitals as above Respiratory: normal respiratory effort, lungs clear to auscultation Cardiovascular: RRR, no murmur, no edema Gastrointestinal (Abdomen): normal bowel sounds, soft, nontender, no hepatosplenomegaly Psychiatric: A+Ox3, euthymic affect Genitourinary: OB Exam Abdomen: + vertex, + estimated weight (6-7 pounds) and + regular contractions Manual OB Exam: + cervical dilation 6 cm, + cervical effacement 100%, + station + 1 and + amniotic fluid (grossly ruptured) clear OB Exam Monitor Tracing: + external FHT monitor used, + external uterine monitor used, + category I and + normal FHT variability Results & Data ([facility]) Vital Signs (Past 12 Hours) Vital Signs Pulse BP 08/30/20 21:36 80 124/69 Code Status & VTE Plan VTE Prophylaxis Plan VTE Prophylaxis will be ordered: No Coding Level of Care Code None Diagnoses Normal labor O80; Z37.9
[2020-08-30 22:32] LABS: Hematocrit (blood only) 36.8 % (37-47); Hemoglobin 12.1 g/dL (12.0-16.0); Mean Corpuscular Hgb Conc 32.9 g/dL (32-36); Mean Corpuscular Volume 91.3 fL (80-100); Mean Platelet Volume 11.8 fL (7.4-10.4); Platelet Count 212 K/uL (130-400); RDW Coefficient of Variation 14.4 % (11.5-14.5); RDW Standard Deviation 48.1 fL (36.4-46.3); Red Blood Count 4.03 M/uL (4.2-5.4)
[2020-08-30] MEDS ORDERED: CALCIUM CARBONATE 500 MG CHEWABLE TAB PO PRN (23:23)
--- NOTE | 2020-08-31 00:49 | Delivery Summary ---
Vaginal Delivery Summary Date of Service August 31, 2020 Vaginal Delivery Summary and 1st Degree LAC Patient is a 40-year-old 2 para 1-0-0-1 white female EDC of a 321 who presented with rupture membranes of clear fluid she then began to contract spontaneously. On arrival in labor and delivery she was 6 cm dilated 100% effaced. She requested epidural analgesia which was effective. She progressed to fully dilated to complete and began pushing. She delivered a viable female infant over intact perineum the rest of the delivered easily and was placed on the mother's abdomen for further attention and drying. The infant was vigorous and moving all 4 limbs. After 1 minute the cord was clamped and cut. The placenta was expressed intact with a three-vessel cord. A first-degree left labial laceration was repaired with 3-0 chromic in the usual fashion. Estimated blood loss was 300 cc. Mother and infant were doing well after delivery. bleeding was controlled with dilute Pitocin. [facility] Vaginal Delivery Charge Vaginal Delivery Codes: 08653 global code for the antepartum, delivery, and post- Delivery Type Details: and 1st Degree LAC
[2020-08-31] MEDS ORDERED: BENZOCAINE 20% AER SPR 82.5 GM CAN EXT PRN (00:59)
[2020-08-31] MEDS ORDERED: OXYTOCIN 30 UNITS/500 ML BAG IV PRN (00:59)
[2020-08-31] MEDS ORDERED: SUPERCREAM 0.870% 15 GM JAR EXT PRN (00:59)
[2020-08-31] MEDS ORDERED: HYDROCORTISONE ACETATE 25 MG SUPP PR PRN (00:59)
[2020-08-31] MEDS ORDERED: bisacodyL 10 MG SUPP PR PRN (00:59)
[2020-08-31] MEDS ORDERED: oxyCODONE/ACETAMINOPHEN 5mg/325mg TAB PO PRN (00:59)
[2020-08-31] MEDS ORDERED: DIPHTHERIA/TETANUS/PERTUSSIS 0.5 ML SYR/VIAL IM ONE (00:59)
[2020-08-31] MEDS: IBUPROFEN 600 MG TAB PO PRN ×5 (02:02→20:12)
[2020-08-31] MEDS: DOCUSATE SODIUM 100 MG CAP PO SCH ×2 (07:33→20:12)
[2020-08-31] MEDS: PRENATAL VITAMIN 1 TAB PO SCH (07:33)
--- NOTE | 2020-08-31 07:52 | Obstetrical Progress Note ---
Date of Service August 31, 2020 Assessment & Plan (1) Encounter for care and examination after delivery: satisfactory course continue current care plan Subjective Ambulation: ambulating normally Voiding: no voiding problems Passing Gas:: Yes Diet Tolerance:: regular diet Lochia:: Small Feeding Type:: breast feeding Review of Systems All systems reviewed & are unremarkable except as noted in HPI & below Physical Exam Constitutional WD/WN, vitals as above Psychiatric A+Ox3, euthymic affect Genitourinary OB Exam Abdomen: + fundal height Fundus: + firm and + relation to umbilicus (2 below U) Results & Data ([facility]) Vital Signs (Past 12 Hours) Vital Signs Temp Pulse Pulse Resp BP BP Pulse Ox 08/31/20 04:00 98.6 F 63 17 111/71 97 08/31/20 03:45 18 08/31/20 02:56 65 116/55 L 08/31/20 02:11 72 18 109/57 L 08/31/20 01:56 74 125/54 L 08/31/20 01:41 143/60 H 08/31/20 01:26 82 18 132/58 L 08/31/20 01:10 98.1 F 76 18 122/55 L 08/31/20 00:48 80 18 119/56 L 08/31/20 00:46 75 177/110 H 08/31/20 00:27 89 96 08/31/20 00:22 89 95 08/31/20 00:21 93 H 94 08/31/20 00:17 100 H 95 08/31/20 00:12 87 95 08/31/20 00:08 67 114/56 L 08/31/20 00:07 81 95 08/31/20 00:02 86 95 08/31/20 00:01 78 94 08/31/20 00:00 97.7 F 18 08/30/20 23:57 86 95 08/30/20 23:53 81 111/60 94 08/30/20 23:52 80 96 08/30/20 23:47 76 94 08/30/20 23:42 80 95 08/30/20 23:37 83 102/57 L 93 08/30/20 23:32 84 95 08/30/20 23:27 88 95 08/30/20 23:26 88 94 08/30/20 23:23 88 101/58 L 08/30/20 23:22 88 95 08/30/20 23:18 84 94 08/30/20 23:17 83 94 08/30/20 23:12 85 96 08/30/20 23:10 85 94 08/30/20 23:09 83 103/58 L 08/30/20 23:07 87 95 08/30/20 23:02 84 95 08/30/20 23:00 18 08/30/20 22:57 92 H 95 08/30/20 22:52 96 H 97 08/30/20 22:51 95 H 104/64 08/30/20 22:47 96 H 96 08/30/20 22:44 88 102/59 L 94 08/30/20 22:42 77 98 08/30/20 22:37 80 100 08/30/20 22:32 74 100 08/30/20 22:27 89 95 08/30/20 22:22 83 98 08/30/20 21:45 98.2 F 18 08/30/20 21:36 80 124/69
--- NOTE | 2020-08-31 09:24 | Anesthesia Procedure Note ---
Date of Service August 31, 2020 Anesthesia Post Epidural Note Vital Signs Vital Signs: Temp Pulse Resp BP Pulse Ox 37.0 C 63 17 111/71 97 08/31/20 04:00 08/31/20 04:00 08/31/20 04:00 08/31/20 04:00 08/31/20 04:00 Pain Intensity Bilateral Episiotomy/Laceration: Pain Intensity: 2 Notes Mental Status: alert / awake / arousable Nausea / Vomiting: adequately controlled Pain: adequately controlled Airway Patency, RR, SpO2: stable & adequate BP & HR: stable & adequate Hydration State: stable & adequate Neuraxial Anesthesia: was administered and sensory block is resolving Anesthetic Complications: no major complications apparent and Pt Satisfied with anesthetic care Epidural: Removed without complications and With tip intact
[2020-08-31] MEDS: ACETAMINOPHEN 325 MG TAB PO PRN (14:32)
[2020-09-01] MEDS: IBUPROFEN 600 MG TAB PO PRN ×2 (00:19→05:39)
--- NOTE | 2020-09-01 06:48 | Obstetrical Progress Note ---
Date of Service <Martha Sims MD - Last Filed: 09/01/20 07:39> September 01, 2020 Assessment & Plan <Martha Sims MD - Last Filed: 09/01/20 07:39> (1) Encounter for care and examination after delivery: Stable, doing well, tolerating diet -Rh+, RI, GBS- -encourage ambulation -pain control with analgesia as needed -d/c discussed with patient, who would like to leave today (2) Normal labor: (3) Supervision of elderly multigravida: <Rachel Copeland DO - Last Filed: 09/01/20 07:50> (1) Encounter for care and examination after delivery: (2) Normal labor: (3) Supervision of elderly multigravida: Subjective <Martha Sims MD - Last Filed: 09/01/20 07:39> 40 y/o female who is now PPD #1 following spontaneous vaginal delivery for SPROM at 37.6 weeks. Reports feeling well overall this morning. + abdominal cramping & 4/10 pain well managed on analgesics. Voiding +. Tolerating meals well and able to ambulate some. + passing gas but no bowel movements. Some persistent lochia with some improvement this morning. . Review of Systems Denies fever, chills, sweats Denies shortness of breath, difficulty breathing, chest pain, palpitations, chest pressure. Denies breast pain. Denies dysuria. Denies headache or changes in vision Review of Systems All systems reviewed & are unremarkable except as noted in HPI & below Physical Exam <Martha Sims MD - Last Filed: 09/01/20 07:39> General: Alert, oriented. No acute distress. Cardiac: Regular rate and rhythm, no murmurs/rubs/gallops. Respiratory: Clear to auscultation bilaterally a/p, no wheezes/rales/rhonchi. No increased work of breathing. Symmetrical chest rise. No respiratory distress. Abdomen: Soft, nontender, nondistended. Bowel sounds present. Uterus: Uterine fundus firm, palpable 5 cm below umbilicus. Lower Extremities: No lower extremity edema or swelling. No deep calf pain. Ning's negative bilaterally.. Constitutional WD/WN, vitals as above Results & Data ([facility]) <Martha Sims MD - Last Filed: 09/01/20 07:39> Vital Signs (Past 12 Hours) Vital Signs Temp Pulse Pulse Resp BP Pulse Ox 08/31/20 23:30 37.0 C 61 18 110/68 97 08/31/20 21:05 36.9 C 61 18 99/63 L <Rachel Copeland DO - Last Filed: 09/01/20 07:50> Co-Signing Physician Notes Resident Physician Supervision Note: I was present with Dr. Sims during the history and exam. I discussed the case with the resident and agree with the findings and plan as documented in the note. Any exceptions or clarifications are listed here: PPD1 doing well. Would like to go home today. Reviewed DC instructions, followup 6w. Documented By: Rachel Copeland DO Resident Activity Tracking <Martha Sims MD - Last Filed: 09/01/20 07:39> Resident Involvement: Resident Care Provided Care Provided: OB Delivery
[2020-09-01 06:56] LABS: Hematocrit (blood only) 32.2 % (37-47); Hemoglobin 10.6 g/dL (12.0-16.0); Mean Corpuscular Hemoglobin 29.6 pg (25-34); Mean Corpuscular Hgb Conc 32.9 g/dL (32-36); Mean Corpuscular Volume 89.9 fL (80-100); Mean Platelet Volume 11.9 fL (7.4-10.4); Platelet Count 184 K/uL (130-400); RDW Coefficient of Variation 14.5 % (11.5-14.5); RDW Standard Deviation 47.7 fL (36.4-46.3); Red Blood Count 3.58 M/uL (4.2-5.4); White Blood Count 10.39 K/uL (4.8-10.8)
[2020-09-01] MEDS: ACETAMINOPHEN 325 MG TAB PO PRN (07:43)
[2020-09-01] MEDS: PRENATAL VITAMIN 1 TAB PO SCH (07:43)
[2020-09-01] MEDS: DOCUSATE SODIUM 100 MG CAP PO SCH (07:43)
[2020-09-01] MEDS ORDERED: bisacodyL 5 MG TABEC PO SCH (20:00)
== END 2020-09-01 11:26 | disposition home or self-care (01) | DRG 807 ==
LOC: OPB 21:18 → 4S1 21:22 → 4S2 08-31 03:45